=== PATIENT | male | born 1990 | race Caucasian/White ===

== ENCOUNTER 2020-01-08 17:50 | Emergency (ER) | payer OTHER, SELFPAY ==
[2020-01-08 17:56] VITALS: BP 152/98; PULSE 71; RESP 16; TEMP 36.9; O2SAT 99
--- NOTE | 2020-01-08 18:07 | ED.NECK ---
HPI - Neck Pain/Injury General Stated Complaint: neck pain/stiffness Time Seen by Provider: 01/08/20 18:07 Source: patient and RN notes reviewed History of Present Illness HPI Narrative: Patient is a 29-year-old male who presents the urgent care with complaints of posterior neck pain and stiffness. Patient states that it is been painful right through the shoulder blades for the last couple days. Patient states he has been using Tylenol without any relief. States that when he was at work today they asked him to be evaluated . 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 Patient denies of any known trauma or injury. No other acute complaints. No acute distress noted. Patient aware of the plan of care. Some parts of this dictation were generated by voice recognition software and may contain typographical and/or grammatical inaccuracies. Related Data Allergies Allergy/AdvReac Type Severity Reaction Status Date / Time No Known Allergies Allergy Verified 01/08/20 18:10 Review of Systems Review of Systems: Narrative: CONSTITUTIONAL: Denies fever, chills, or sweats. EYES: Denies visual changes, redness, or discharge. ENT: Denies rhinorrhea, congestion, sore throat, or otalgia. CARDIOVASCULAR: Denies chest pain, palpitations, or edema. RESPIRATORY: Denies cough or dyspnea. GASTROINTESTINAL: Denies abdominal pain, nausea, vomiting, or diarrhea. GENITOURINARY: Denies dysuria or hematuria. SKIN: Denies rash or itching. MUSCULOSKELETAL: Reports of posterior neck pain. Denies back pain, joint pain, or myalgia. NEUROLOGIC: Denies headache, numbness, or weakness. All other systems reviewed are negative, except as documented in HPI. PMFSH Social History Social History Smoking status: Never smoker Alcohol intake: current Comments At the time of my signature, I reviewed and agree with the nursing past medical, surgical, social, and family history. There is no relevant family history pertinent to the patient complaint. Exam Narrative: Exam Narrative: GENERAL: This is a well-nourished, well-developed patient, in no apparent distress. HEAD: normocephalic, atraumatic. EYES: PERRL. Sclera clear/white. Vision is grossly intact. EARS: External ears normal NOSE: External nose normal with no obvious nasal discharge, nares without redness, no rhinorrhea. THROAT: Mucous membranes moist NECK: Mild to moderate posterior cervical tenderness exacerbated with chin tuck. Had left and flexion side to side within normal limits however notable guarding SKIN: warm, intact with no suspicious lesions or rash, good texture and turgor. NEURO: awake, alert, and oriented to person, place and time. There were no obvious focal neurologic abnormalities. EXTREMITIES: No clubbing, cyanosis, or edema. Course Vital Signs Vital signs: Vital Signs Temperature 98.4 F 01/08/20 17:56 Pulse Rate 71 01/08/20 17:56 Respiratory Rate 16 01/08/20 17:56 Blood Pressure 152/98 H 01/08/20 17:56 Pulse Oximetry 99 01/08/20 17:56 Temperature 98.4 F 01/08/20 17:56 Pulse Rate 71 01/08/20 17:56 Respiratory Rate 16 01/08/20 17:56 Blood Pressure 152/98 H 01/08/20 17:56 Pulse Oximetry 99 01/08/20 17:56 Reviewed-patient is informed that they may have pre-hypertension or hypertension based on a blood pressure reading in the department. I recommend the patient call the primary care provider listed on their discharge instructions or a physician of their choice this week to arrange follow-up for further evaluation of possible pre-hypertension or hypertension. MDM - Neck Pain/Injury MDM Narrative Medical decision making narrative: Advised the patient to avoid any strenuous activity or heavy lifting/pushing/pulling for the next 2 to 3 days to allow the area to heal. May use a heating pad or an ice pack to the posterior neck as needed for comfort. Use and only 20-minute inc
== END 2020-01-08 18:30 | disposition home or self-care (01) ==
PROVIDERS: Emergency Provider Nurse Practitioner Family
DX: S16.1XXA Strain of muscle, fascia and tendon at neck level, initial encounter (principal); X58.XXXA Exposure to other specified factors, initial encounter
CPT/HCPCS: 99213; G0463